=== PATIENT | female | born 1945 | race Caucasian/White ===

== ENCOUNTER 2018-03-12 13:52 | Emergency (ER) | payer MEDICARE, OTHER ==
[~2018-03-12] VITALS: Ht 162.6 cm; Wt 97.5 kg
[2018-03-12] MEDS ORDERED: CLOBETASOL PROP50 M1 TOP (14:04)
[2018-03-12] MEDS ORDERED: NORVASC2.5 MG PO (14:05)
[2018-03-12] MEDS ORDERED: LOPRESSOR50 PO (14:05)
[2018-03-12] MEDS ORDERED: METFORMIN HCL500 MG PO (14:05)
[2018-03-12] MEDS ORDERED: PAXIL10 MG PO (14:06)
[2018-03-12] MEDS ORDERED: L-THYROXINE (14:07)
[2018-03-12] MEDS ORDERED: CLARITIN10 MG PO (14:07)
[2018-03-12] MEDS ORDERED: TYLENOL EXTRA500 MG PO (14:08)
[2018-03-12] MEDS ORDERED: ASPIR 8181 MG PO (14:08)
[2018-03-12] MEDS ORDERED: FENOFIBRATE160 MG PO (14:08)
[2018-03-12] MEDS ORDERED: MULTI-VITAMIN1 EAC5 PO (14:09)
[2018-03-12] MEDS ORDERED: [UNRECOGNIZED DRUG - OTHER] (14:09)
[2018-03-12] MEDS ORDERED: PATANOL5 ML OPHTHALMIC (14:10)
[2018-03-12] MEDS ORDERED: BACITRACIN-POL3.5 GM OPHTHALMIC (14:10)
[2018-03-12] MEDS ORDERED: [UNRECOGNIZED DRUG - OTHER] (14:11)
[2018-03-12] MEDS ORDERED: VOLTAREN GEL 1100 G2 TOP (15:55)
[2018-03-12] MEDS ORDERED: NAPROSYN500 MG PO (15:55)
[2018-03-12] MEDS ORDERED: NORFLEX100 MG PO (15:55)
[2018-03-12 16:09] VITALS: BP 172/85
== END 2018-03-12 16:12 | disposition home or self-care (01) ==
LOC: M.ERS 13:52
DX: S16.1XXA Strain of muscle, fascia and tendon at neck level, initial encounter (principal); S39.012A Strain of muscle, fascia and tendon of lower back, initial encounter; S09.90XA Unspecified injury of head, initial encounter; E78.00 Pure hypercholesterolemia, unspecified; I10 Essential (primary) hypertension; E11.9 Type 2 diabetes mellitus without complications; M19.90 Unspecified osteoarthritis, unspecified site; Z88.1 Allergy status to other antibiotic agents; Z88.6 Allergy status to analgesic agent; Z88.8 Allergy status to other drugs, medicaments and biological substances; W18.39XA Other fall on same level, initial encounter; Y93.89 Activity, other specified; Y92.89 Other specified places as the place of occurrence of the external cause; Y99.8 Other external cause status